=== PATIENT | male | born 1970 | race Caucasian/White ===

== ENCOUNTER 2024-01-02 14:28 | Emergency (ER) | payer BC ==
[~2024-01-02] VITALS: Ht 175.3 cm; Wt 72.7 kg
[2024-01-02 14:35] VITALS: TEMP 98
[2024-01-02 15:27] VITALS: BP 124/78; PULSE 82
== END 2024-01-02 15:28 | disposition home or self-care (01) ==
LOC: COL.ER 14:28
DX: M70.22 Olecranon bursitis, left elbow (principal)